=== PATIENT | female | born 1975 | race Caucasian/White ===

== ENCOUNTER 2018-05-29 15:56 | Emergency (ER) | payer SELFPAY ==
[2018-05-29] MEDS ORDERED: Ibuprofen 800 MG TAB ONE (17:36)
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
== END 2018-05-29 17:43 | disposition home or self-care (01) ==
LOC: BURERS 15:56
DX: S30.0XXA Contusion of lower back and pelvis, initial encounter (principal); S20.311A Abrasion of right front wall of thorax, initial encounter; G40.909 Epilepsy, unspecified, not intractable, without status epilepticus; F41.9 Anxiety disorder, unspecified; F43.10 Post-traumatic stress disorder, unspecified; F31.9 Bipolar disorder, unspecified; F17.210 Nicotine dependence, cigarettes, uncomplicated; W01.0XXA Fall on same level from slipping, tripping and stumbling without subsequent striking against object, initial encounter

== ENCOUNTER 2018-09-07 02:02 | Emergency (ER) | payer SELFPAY ==
[2018-09-07] MEDS ORDERED: Ketorolac Tromethamine 60 MG/2 ML VIAL ONE (02:18)
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
== END 2018-09-07 02:50 | disposition home or self-care (01) ==
LOC: BURERS 02:02
DX: S20.212A Contusion of left front wall of thorax, initial encounter (principal); S80.212A Abrasion, left knee, initial encounter; S80.211A Abrasion, right knee, initial encounter; F43.10 Post-traumatic stress disorder, unspecified; F41.9 Anxiety disorder, unspecified; G40.909 Epilepsy, unspecified, not intractable, without status epilepticus; F17.210 Nicotine dependence, cigarettes, uncomplicated; W01.198A Fall on same level from slipping, tripping and stumbling with subsequent striking against other object, initial encounter
CPT/HCPCS: 71046; 96372; J1885

== ENCOUNTER 2018-12-08 04:50 | Emergency (ER) | payer SELFPAY ==
--- NOTE | 2018-12-08 09:04 | RAD ---
SOFT TISSUE NECK: Date: 12/08/18 Lateral view shows no opaque foreign bodies. The epiglottis is normal in size. The arytenoid and cric oid cartilages are partially calcified. The trachea is widely patent. Slight disc space narrowing is noted at the C6-C7 level of the lower cervical spine. The prevertebral soft tissues are not thickened . IMPRESSION: No acute findings. POS: HOME
== END 2018-12-08 05:55 | disposition home or self-care (01) ==
LOC: BURERS 04:50
DX: T18.128A Food in esophagus causing other injury, initial encounter (principal); F10.129 Alcohol abuse with intoxication, unspecified; G40.909 Epilepsy, unspecified, not intractable, without status epilepticus; F41.9 Anxiety disorder, unspecified; F31.9 Bipolar disorder, unspecified; F43.10 Post-traumatic stress disorder, unspecified; F17.210 Nicotine dependence, cigarettes, uncomplicated
CPT/HCPCS: 70360